=== PATIENT | female | born 1995 | race Hispanic/Latino ===

== ENCOUNTER 2016-03-18 15:10 | Emergency (ER) | payer OTHER ==
[~2016-03-18] VITALS: Ht 152.4 cm; Wt 42.9 kg
[~2016-03-18 15:10] MED LIST: MAGNESIUM CITR296 M1 PO; MIRALAX255 GM PO
[2016-03-18 17:01] LABS: HEMATOCRIT 39.1 % (36.0-46.0); MCV 85.7 FL (83-99); MEAN PLAT.VOLUME 9.6 uM^3 (9.5-12.4); PLATELET COUNT 283 K/uL (156-360); RBC DIS.WIDTH-CV 12.2 % (11.8-14.6); RBC DIS.WIDTH-SD 36.9 % (39-53); RED BLOOD COUNT 4.56 M/uL (3.80-5.20); WHITE BLOOD COUNT 9.5 K/uL (4.1-10.2)
[2016-03-18 17:15] LABS: CHLORIDE 106 mEq/L (99-109); POTASSIUM 3.9 mEq/L (3.7-5.4); SODIUM 140 mEq/L (136-147)
[2016-03-18 17:17] LABS: GLUCOSE 91 mg/dL (70-99)
[2016-03-18 17:18] LABS: ANION GAP 11 MEQ/L (2-14)
[2016-03-18 17:21] LABS: GFR ESTIMATE (CALCULATED) > 59 mL/min/
[2016-03-18 17:22] LABS: UREA NITROGEN (BUN) 9 mg/dL (9-23)
[2016-03-18 17:24] LABS: TROP-I INTERPRETATION NEGATIVE; TROPONIN-I < 0.01 ng/mL (0.0-0.30)
[2016-03-18] MEDS ORDERED: ATARAX,VISTARIL25 MG PO (19:05)
[2016-03-18 19:27] VITALS: BP 120/82
== END 2016-03-18 19:28 | disposition home or self-care (01) ==
LOC: EME 15:10
DX: R07.89 Other chest pain (principal); F41.9 Anxiety disorder, unspecified; F42.9 Obsessive-compulsive disorder, unspecified
CPT/HCPCS: 71020; 80048; 84484; 85027; 93005; 99281; 99284